=== PATIENT | female | born 1940 | race Caucasian/White ===

== ENCOUNTER 2016-12-18 11:02 | Emergency (ER) | payer BC ==
[~2016-12-18] VITALS: Ht 167.6 cm; Wt 77.9 kg
[~2016-12-18 11:02] MED LIST: ATOR-24 PO; BROM0.07 OPL; METO-217 PO; MULT-506 PO; PRED1SUS3 OPL; SERT-234 PO; SPRIN/30 INH; [UNRECOGNIZED DRUG - OTHER] PO
[2016-12-18 11:07] VITALS: TEMP 36.5; Ht 167.6 cm; Wt 77.9 kg
[2016-12-18 11:18] VITALS: O2SAT 94
[2016-12-18] MEDS ORDERED: BACL10TA PO (11:37)
[2016-12-18 12:35] LABS: BASO % 0.7 %; BASO ABS # 0.05 K/uL (0-0.2); COMPLETE YES; EOS % 2.8 %; HEMATOCRIT 42.6 % (37-47); IG% 0.1 %; LYMPH % 25.8 %; LYMPH ABS # 1.83 K/uL (1.2-3.4); MEAN CELL VOLUME 96.4 fL (80-100); MEAN CORPUSCULAR HEMOGLOBIN 31.7 pg (25-34); MEAN CORPUSCULAR HGB CONC 32.9 g/dl (32-36); MEAN PLATELET VOLUME 10.1 fL (7.4-10.4); MONO % 8.6 %; PLATELET COUNT 276 K/uL (130-400); RED BLOOD COUNT 4.42 M/uL (4.2-5.4)
[2016-12-18 12:43] LABS: BUN/CREATININE RATIO 18.5 (10-20); CREATININE 0.89 mg/dl (0.60-1.20); POTASSIUM 3.9 mmol/L (3.5-5.1)
--- NOTE | 2016-12-18 12:45 | DIAGNOSTIC IMAGING REPORT ---
CT HEAD WITHOUT CONTRAST (CT) CLINICAL HISTORY: Severe headache. Dizziness. COMPARISON STUDY: 08/02/2007 TECHNIQUE: Axial CT of the brain is performed from the vertex to the skull base. IV contrast was not administered for this examination. A dose lowering technique was utilized adhering to the principles of ALARA. CT DOSE: 638.56 mGycm FINDINGS: No intra or extra-axial mass lesions are visualized. There is no CT evidence of acute cortical infarction. There is no evidence of midline shift. There is no acute hemorrhage. No calvarial fractures are visualized. There are minimal white matter hypodensities likely on a small vessel basis. There is no evidence of pathologic ventricular dilatation. There is no evidence of acute sinusitis IMPRESSION: No acute intracranial findings Electronically signed by: Jc Rodriguez M.D. 12/18/2016 12:44 PM Dictated Date/Time: 12/18/2016 12:43 PM
[2016-12-18 13:05] VITALS: BP 160/82; PULSE 59; O2SAT 95
--- NOTE | 2016-12-18 16:53 | EMERGENCY ROOM VISIT NOTE ---
History Report prepared by Gretel: Tommie Valdez Under the Supervision of: Dr. Herbert Bryant D.O. First contact with patient: 11:54 Chief Complaint: HYPERTENSION Stated Complaint: LIGHTHEADED, ELEVATED BP-WAS AT DENTIST OFFICE History of Present Illness The patient is a 76 year old female who presents to the Emergency Room with complaints of resolved headache beginning shortly prior to arrival. She states that she was at the dentist having a crown placed just prior to arrival. She states that she developed a headache due to having her mouth open for so long. The patient states that she normally has headaches every day and that her current headache feels identical to her previous headaches. She localizes the pain to behind her right eye. She also complains of a feeling of "fuzziness". The patient was given Aleve which resolved her symptoms. She notes that she was found to be hypertensive at the dentist's office. Pt denies change in vision, fevers, chest pain, shortness of breath, nausea, vomiting, diarrhea, pain with urination, and melena. Source of History: patient Onset: Shortly prior to arrival Position: head Timing: resolved Modifying Factors (Relieving): other (Aleve) Associated Symptoms: No fevers, No chest pain, No SOB, No nausea, No vomiting, No melena, No diarrhea Note: The patient also complains of a feeling of "fuzziness". Pt denies change in vision, or pain with urination Review of Systems See HPI for pertinent positives & negatives. A total of 10 systems reviewed and were otherwise negative. Past Medical & Surgical Medical Problems: (1) Atrial fibrillation (2) Hematoma of right lower extremity (3) No Known Active Medical Problems Surgical Problems: (1) History of laminectomy Family History Patient reports no known family medical history. Social History Smoking Status: Never Smoker Alcohol Use: occasionally Current/Historical Medications Scheduled Atorvastatin (Lipitor), 40 MG PO QAM Baclofen (Lioresal), 10 MG PO HS Bromfenac Sodium (Ophth) (Prolensa), 1 DROP OPL DAILY Metoprolol Succinate (Toprol Xl), 50 MG PO QAM Multivitamin (Multivitamin), 1 TAB PO QAM Prednisolone Acetate (Ophth) (Pred Forte 1% Oph), 1 DROPS OPL BID Sertraline (Zoloft), 100 MG PO QAM Tiotropium Callahan (Spiriva Handihaler), 1 CAP INH QAM [Vitamin B Comlex], 1 TAB PO QAM Allergies Coded Allergies: Amoxicillin (Verified Adverse Reaction, Unknown, DIARRHEA, 12/18/16) Clavulanic Acid (Verified Adverse Reaction, Unknown, DIARRHEA, 12/18/16) Physical Exam Vital Signs Date Time Temp Pulse Resp B/P (MAP) Pulse Ox O2 Delivery O2 Flow Rate FiO2 12/18/16 13:05 59 16 160/82 95 12/18/16 12:00 66 16 146/87 94 Room Air 12/18/16 11:18 94 Room Air 12/18/16 11:18 60 18 161/89 94 Room Air 12/18/16 11:07 36.5 104 18 161/73 95 Room Air Physical Exam GENERAL: Sitting up in bed, alert, well appearing, well nourished, no distress, non-toxic EYE EXAM: normal conjunctiva. OROPHARYNX: no exudate, no erythema, lips, buccal mucosa, and tongue normal and mucous membranes are moist NECK: supple, no nuchal rigidity, no adenopathy, non-tender LUNGS: Clear to auscultation. Normal chest wall mechanics HEART: no murmurs, S1 normal and S2 normal ABDOMEN: abdomen soft, non-tender, normo-active bowel sounds, no masses, no rebound or guarding. BACK: Back is symmetrical on inspection and there is no deformity, no midline tenderness, no CVA tenderness. SKIN: no rashes and no bruising UPPER EXTREMITIES: upper extremities are grossly normal. LOWER EXTREMITIES: No pitting edema. NEURO EXAM: Normal sensorium, cranial nerves II-XII intact, normal speech, no weakness of arms, n weakness of legs. No drift. Finger to nose intact. Gross sensation intact. Medical Decision & Procedures ER Provider Diagnostic Interpretation: CT:Per my review, radiologist interpretation. CT HEAD WITHOUT CONTRAST (CT) FINDINGS: No intra or extra-axial mass lesions are visualized. There is no CT evidence of acute cortical infarction. There is no evidence of midline shift. There is no acute hemorrhage. No calvarial fractures are visualized. There are minimal white matter hypodensities likely on a small vessel basis. There is no evidence of pathologic ventricular dilatation. There is no evidence of acute sinusitis IMPRESSION: No acute intracranial findings Electronically signed by: Jc Rodriguez M.D. 12/18/2016 12:44 PM Laboratory Results 12/18/16 11:20 Red Blood Count 4.42, Mean Corpuscular Volume 96.4, Mean Corpuscular Hemoglobin 31.7, Mean Corpuscular Hemoglobin Concent 32.9, Mean Platelet Volume 10.1, Neutrophils (%) (Auto) 62.0, Lymphocytes (%) (Auto) 25.8, Monocytes (%) (Auto) 8.6, Eosinophils (%) (Auto) 2.8, Basophils (%) (Auto) 0.7, Neutrophils # (Auto) 4.40, Lymphocytes # (Auto) 1.83, Monocytes # (Auto) 0.61, Eosinophils # (Auto) 0.20, Basophils # (Auto) 0.05 12/18/16 11:20 Test 12/18/16 11:20 White Blood Count 7.10 K/uL (4.8-10.8) Red Blood Count 4.42 M/uL (4.2-5.4) Hemoglobin 14.0 g/dL (12.0-16.0) Hematocrit 42.6 % (37-47) Mean Corpuscular Volume 96.4 fL (80-100) Mean Corpuscular Hemoglobin 31.7 pg (25-34) Mean Corpuscular Hemoglobin Concent 32.9 g/dl (32-36) Platelet Count 276 K/uL (130-400) Mean Platelet Volume 10.1 fL (7.4-10.4) Neutrophils (%) (Auto) 62.0 % Lymphocytes (%) (Auto) 25.8 % Monocytes (%) (Auto) 8.6 % Eosinophils (%) (Auto) 2.8 % Basophils (%) (Auto) 0.7 % Neutrophils # (Auto) 4.40 K/uL (1.4-6.5) Lymphocytes # (Auto) 1.83 K/uL (1.2-3.4) Monocytes # (Auto) 0.61 K/uL (0.11-0.59) Eosinophils # (Auto) 0.20 K/uL (0-0.5) Basophils # (Auto) 0.05 K/uL (0-0.2) RDW Standard Deviation 48.1 fL (36.4-46.3) RDW Coefficient of Variation 13.6 % (11.5-14.5) Immature Granulocyte % (Auto) 0.1 % Immature Granulocyte # (Auto) 0.01 K/uL (0.00-0.02) Anion Gap 7.0 mmol/L (3-11) Est Creatinine Clear Calc Drug Dose 58.4 ml/min Estimated GFR () 74.0 Estimated GFR (Non- 63.8 BUN/Creatinine Ratio 18.5 (10-20) Calcium Level 9.0 mg/dl (8.5-10.1) Laboratory results per my review. ECG Indication: other (headache) Rate (beats per minute): 69 Rhythm: sinus rhythm Findings: PAC, Q waves (Septal), other (Normal axis. Normal intervals. ) Comparison ECG Date: June 30, 2009 Change: no significant change ED Course ED COURSE: Vital signs were reviewed and showed hypertension The patients medical record was reviewed The above diagnostic studies were performed and reviewed. ED treatments and interventions as stated above. 1206: The patient was evaluated in room C9. A complete history and physical examination was performed. 1300: Upon reevaluation, the patient is resting comfortably. I discussed my findings with the patient and she understands and agrees with the treatment plan. Based on the patients age, coexisting illnesses, exam and lab findings the decision to treat as an outpatient was made. The patient remained stable while under my care. The patient appeared well at the time of discharge. Medical Decision Differential Diagnosis includes but is not limited to ischemic Stroke, hemorrhagic stroke, bells palsy, mass, neoplasm, migraine headache, seizure, subarachnoid hemorrhage, TIA, and transient global amnesia. Patient is a 76-year-old female who presents to ER for headache. She notes she gets headaches every day. This consistent with her typical headache in her frontal region. Unchanged in any way. She was having a dental procedure performed and had her mouth open for over an hour. She felt a little off. Blood pressure was checked. She was hypertensive. She was sent in for further workup at the ER. Patient is completely neurologically intact. CT head was negative. Systolic BPs were 140. EKG was unremarkable. BMP all with CBC was negative. Patient denied any chest pain or shortness breath. No weakness or numbness in the extremities. No signs of CVA. Patient was updated at bedside and discharged as I favor her symptoms are likely secondary to the jaw pain/ dental pain from the procedure causing the hypertension and lightheadedness. Discussed with Pt concerning signs and symptoms to watch out for. Pt was instructed to follow up with their PCP and discussed with the patient their option to return to the ED at anytime for persistent or worsening symptoms. The appropriate anticipatory guidance and out-patient management, including indications for return to the emergency department, were explained at length to the patient and understood. Medication Reconcilliation Current Medication List: was personally reviewed by me Blood Pressure Screening Patient's blood pressure: Elevated blood pressure Blood pressure disposition: Elevated BP felt to be situational Impression Primary Impression: Cephalgia Additional Impression: HTN (hypertension) Scribe Attestation The scribe's documentation has been prepared under my direction and personally reviewed by me in its entirety. I confirm that the note above accurately reflects all work, treatment, procedures, and medical decision making performed by me. Departure Information Dispostion Home / Self-Care Referrals Debbie Castillo DO (PCP) Forms HOME CARE DOCUMENTATION FORM, IMPORTANT VISIT INFORMATION, WORK / SCHOOL INSTRUCTIONS Patient Instructions ED Cephalgia Unspecified, ED Hypertension Poss, My [facility] Additional Instructions Please follow up with your primary care doctor with in the next 24 hours. Any worsening of your symptoms, please return to the ED immediately. This includes any fevers greater than 100.4, worsening pain, chest pain, shortness breath, persistent nausea, vomiting, unable to eat or drink, weakness or numbness in arms or legs, or any other concerning signs or symptoms from your standpoint. Problem Qualifiers Primary Impression: Cephalgia Headache type: unspecified Headache chronicity pattern: unspecified pattern Intractability: not intractable Qualified Codes: R51 - Headache Additional Impression: HTN (hypertension) Hypertension type: unspecified Qualified Codes: I10 - Essential (primary) hypertension
== END 2016-12-18 13:21 | disposition home or self-care (01) ==
LOC: C.EDB 11:04 → C.EDC 13:21
DX: R51 Headache (principal); I10 Essential (primary) hypertension; I48.91 Unspecified atrial fibrillation; Z87.828 Personal history of other (healed) physical injury and trauma; Z98.890 Other specified postprocedural states; Z79.899 Other long term (current) drug therapy; Z88.1 Allergy status to other antibiotic agents; Z88.8 Allergy status to other drugs, medicaments and biological substances

== ENCOUNTER → 2017-01-02 | Outpatient (CLI) | payer BC ==
[~2017-01-02] MED LIST changes: +BACL10TA PO
--- NOTE | 2017-02-01 07:53 | CODING QUERY MEDICAL NECESSITY ---
TREATMENT RENDERED WITHOUT A DIAGNOSIS To promote full compliance with coding requirements relating to patient care, physician participation is requested in all cases of child support specialist uncertainty. Please assist us with providing a diagnosis/symptom for the test(s) below: A diagnosis/symptom was not documented on your Order. A valid diagnosis/symptom is required to bill all insurances. Please remember that we are unable to code a diagnosis of rule out, probable, possible, questionable, or suspected. Tests that require a diagnosis: * AERO/ANAE CULTURE & GRAM STAIN DIAGNOSIS: Provider Signature: Date: Thank you Indy [place] [employer] Once completed, please kindly fax back to [phone] For questions please call [phone]
== END | disposition home or self-care (01) ==
LOC: C.LABSPEC 17:54
PROVIDERS: ATTEND Orthopaedic Surgery
DX: M65.132 Other infective (teno)synovitis, left wrist (principal)

== ENCOUNTER 2019-08-14 10:02 | Observation (INO) ==
[2019-08-14] MEDS ORDERED: NITROGLYCERIN SL 0.4 MG/TAB TAB SL PRN ×2 (10:31→16:32)
--- NOTE | 2019-08-14 10:31 | Emergency Department Note ---
Impression & Plan Chest pain ED Provider Note NAME: ALY FOX AGE: 79 SEX: F : 1940 ARRIVES VIA: Ambulance INFORMANT: Patient, ED PROVIDER(S): Joey Lyn MD Chief Complaint: Chest pain HPI: Patient does complain of waking up with chest pain within the left breast moving to the left shoulder axilla area. The patient thought that maybe this is attributable to a massage. The patient states the pain did last for several hours and subsequently called for evaluation. The patient did take 4 baby aspirin on her own prior to arrival. The patient did receive nitro in route which resolved her pain. Patient denies shortness of breath. Patient does not believe the pain to be worsened with position. Patient is not had any diaphoresis patient denies nausea vomiting or syncope. Patient was not doing anything exertional as the patient has not necessarily had exertional chest pains. Patient is not had any cough. ROS: See HPI for pertinent positives and negatives. A total of 10 systems were reviewed and otherwise negative. Past medical history: See below Surgical history: See below Social history: See below Physical Exam: GENERAL: Well appearing, well nourished, NAD, non-toxic. EYE EXAM: Normal conjunctiva. PERRL, no anisocoria and EOM's grossly intact w/o pain. NECK: Supple, no nuchal rigidity, no adenopathy, non-tender. No signs of meningismus. LUNGS: Clear to auscultation. Normal chest wall mechanics. HEART: NSR, no MRG. ABDOMEN: Abdomen soft, non-tender, normo-active bowel sounds, no masses, no rebound or guarding. BACK: No CVA TTP. SKIN: No rashes and no bruising. UPPER EXTREMITIES: Upper extremities are grossly normal. LOWER EXTREMITIES: Grossly normal, no edema. Negative Homans sign bilaterally. NEURO EXAM: A&O x3, cranial nerves II-XII grossly intact, normal speech, moves all 4 extremities on command w/o issue. Differential diagnoses: Cardiac ischemia, aortic dissection, pulmonary embolism, pneumothorax, pneumonia, pericarditis, myocarditis, esophageal rupture, GERD, cholecystitis, pancreatitis, musculoskeletal, as well as other pathologies. Course: Patient was seen and evaluated the bedside. Full history physical exam was performed. EKG: Indication: Chest pain Sinus bradycardia, rate of 57, prolonged QT, normal axis, no obvious ST changes, Q wave in V2. Imaging Studies: Radiology results as stated below per my review in the radiologist's interpretation: XR chest 1V portable CLINICAL HISTORY: Chest Pain pain COMPARISON STUDY: 03/05/2019 FINDINGS: The bones soft tissues and hemidiaphragms are normal. The cardiomediastinal silhouette is normal. The lungs are clear. The pulmonary vasculature is normal. IMPRESSION: Negative chest. ACT 112: Negative or not required by law. The above report was generated using voice recognition software. It may contain grammatical, syntax or spelling errors. Electronically signed by: Romeo Ag M.D. 08/14/2019 10:52 AM Dictated: 08/14/19 105 Transcribed: 08/14/19 105 Cardiac monitoring: An order was placed for continuous cardiac monitoring. The monitor shows a rate of 53 with sinus bradycardia rhythm. MDM: Patient did present with concern for left-sided radiating chest pain. Did impr ove with nitro. Patient was ordered sublingual nitro as needed. Troponin undetectable EKG unremarkable. She has normal white count H&H. Patient has very mild hypercalcemia LFTs kidney function unremarkable. Lipase not elevated. Not currently in A. fib and the patient is currently anticoagulated. Patient is a heart score greater than 4 given the patient's story believe that it would be reasonable for observation. I did speak the on-call hospitalist Dr. Tidwell who agreed to further evaluate treat the patient. Past Med/Surg History Medical History Atrial fibrillation (Inactive) Cervicalgia (Inactive) HTN (hypertension) (Inactive) Surgical History History of back surgery Social History (Updated 08/14/19 @ 14:44 by Indy Tidwell DO) Preferred Language: Citizen Of [place] Communication Ability: Effective Recharger Required: No Beliefs That Will Affect Care: None Current Living Situation: Personal Care Facility Current Living Situation Comment: [place] Other Information That Helps Us Care for You: No Feels Safe at Home: Yes Safety Concerns: Feels Safe At This Time Smoking Status: Former smoker Age Quit Using Tobacco: 59 ; Hx Alcohol Use: Yes Alcohol type: wine Alcohol Intake Frequency Comment: wine, 2 glasses most days a week Hx Substance Use: No Allergies Allergies Allergy/AdvReac Type Severity Reaction Status Date / Time amoxicillin AdvReac Unknown DIARRHEA Verified 08/14/19 11:15 clavulanic acid AdvReac Unknown DIARRHEA Verified 08/14/19 11:15 Home Meds Home Medications Medication Instructions Recorded Confirmed atorvastatin 40 mg tablet 40 mg PO HS #90 tab 09/15/18 08/14/19 escitalopram oxalate 20 mg tablet 20 mg PO QAM tab 09/15/18 08/14/19 apixaban 5 mg tablet 5 mg PO BID 04/13/19 08/14/19 cholecalciferol (vitamin D3) 50 mcg PO QDL 08/14/19 08/14/19 [Vitamin D3] metoprolol succinate 25 mg PO HS 08/14/19 08/14/19 metoprolol succinate 50 mg PO QAM 08/14/19 08/14/19 topiramate 100 mg PO QAM 08/14/19 08/14/19 vitamin B complex 1 tab PO QDL 08/14/19 08/14/19 Results & Data (ED) Vital Signs Vital Signs - 24 hr 08/14/19 10:12 08/14/19 11:30 08/14/19 11:33 Temperature 37.0 C Temperature Source Oral Pulse Rate 54 L Pulse Rate [Apical] 57 L Respiratory Rate 16 16 Respiratory Effort / Characteristics Non-Labored Blood Pressure 128/73 Blood Pressure [Right Arm] 134/74 Blood Pressure Mean 91 Blood Pressure Mean [Right Arm] 94 Pulse Oximetry 95 95 Oxygen Delivery Method Room Air Room Air Sepsis Recent Fever Within 48 Hours No Sepsis New/Unexplained Change in Mental Status No Sepsis Action Taken by Nursing No Action Required 08/14/19 12:46 Temperature Temperature Source Pulse Rate Pulse Rate [Apical] 53 L Respiratory Rate 16 Respiratory Effort / Characteristics Blood Pressure Blood Pressure [Right Arm] Blood Pressure Mean Blood Pressure Mean [Right Arm] Pulse Oximetry 96 Oxygen Delivery Method Room Air Sepsis Recent Fever Within 48 Hours Sepsis New/Unexplained Change in Mental Status Sepsis Action Taken by [facility] Medications Current Medication List: was personally reviewed by me Laboratory Data Attestation: I reviewed the patient's lab results. Result diagrams: 08/14/19 11:00 08/14/19 12:02 Lab Results 08/14/19 08/14/19 08/14/19 Range/Units 11:00 11:00 11:00 WBC 6.11 (4.8-10.8) K/uL RBC 4.01 L (4.2-5.4) M/uL Hgb 12.4 (12.0-16.0) g/dL Hct 39.2 (37-47) % MCV 97.8 (80-100) fL MCH 30.9 (25-34) pg MCHC 31.6 L (32-36) g/dL RDW Std Deviation 48.0 H (36.4-46.3) fL RDW Coeff of Royer 13.4 (11.5-14.5) % Plt Count 289 (130-400) K/uL MPV 10.1 (7.4-10.4) fL Immature Gran % (Auto) 0.2 % Neut % (Auto) 63.0 % Lymph % (Auto) 23.4 % [place] % (Auto) 9.7 % Eos % (Auto) 2.9 % Baso % (Auto) 0.8 % Neut # (Auto) 3.85 (1.4-6.5) K/uL Lymph # (Auto) 1.43 (1.2-3.4) K/uL [place] # (Auto) 0.59 (0.11-0.59) K/uL Eos # (Auto) 0.18 (0-0.5) K/uL Baso # (Auto) 0.05 (0-0.2) K/uL Immature Gran # (Auto) 0.01 (0.00-0.02) K/uL PT Cancelled INR Cancelled APTT Cancelled PTT Ratio Cancelled Sodium Cancelled Potassium Cancelled Chloride Cancelled Carbon Dioxide Cancelled Anion Gap Cancelled BUN Cancelled Creatinine Cancelled Est Cr Clr Drug Dosing Cancelled Est GFR ( Amer) Cancelled Est GFR (Non-Af Amer) Cancelled BUN/Creatinine Ratio Cancelled Glucose Cancelled Calcium Cancelled Total Bilirubin Cancelled AST Cancelled ALT Cancelled Alkaline Phosphatase Cancelled Troponin I Cancelled Total Protein Cancelled Albumin Cancelled Globulin Cancelled Albumin/Globulin Ratio Cancelled Lipase Cancelled 08/14/19 08/14/19 Range/Units 12:02 12:02 WBC (4.8-10.8) K/uL RBC (4.2-5.4) M/uL Hgb (12.0-16.0) g/dL Hct (37-47) % MCV (80-100) fL MCH (25-34) pg MCHC (32-36) g/dL RDW Std Deviation (36.4-46.3) fL RDW Coeff of Royer (11.5-14.5) % Plt Count (130-400) K/uL MPV (7.4-10.4) fL Immature Gran % (Auto) % Neut % (Auto) % Lymph % (Auto) % [place] % (Auto) % Eos % (Auto) % Baso % (Auto) % Neut # (Auto) (1.4-6.5) K/uL Lymph # (Auto) (1.2-3.4) K/uL [place] # (Auto) (0.11-0.59) K/uL Eos # (Auto) (0-0.5) K/uL Baso # (Auto) (0-0.2) K/uL Immature Gran # (Auto) (0.00-0.02) K/uL PT 12.2 H INR 1.2 H APTT 34.1 H PTT Ratio 1.2 Sodium 140 Potassium 3.9 Chloride 109 H Carbon Dioxide 26 Anion Gap 6.0 BUN 14 Creatinine 0.83 Est Cr Clr Drug Dosing 60.9 Est GFR ( Amer) 78.8 Est GFR (Non-Af Amer) 68.0 BUN/Creatinine Ratio 16.9 Glucose 101 H Calcium 8.3 L Total Bilirubin 0.5 AST 26 ALT 26 Alkaline Phosphatase 83 Troponin I < 0.015 Total Protein 7.1 Albumin 3.5 Globulin 3.6 Albumin/Globulin Ratio 1.0 Lipase 260 Administered Medications Acetaminophen (Tylenol) 650 mg PO Q4H PRN PRN Reason: Pain or Fever Stop: 09/13/19 16:31 Last Admin: 08/14/19 19:52 Dose: 650 mg Documented by: [id number] Apixaban (Eliquis) 5 mg PO BID [facility] Stop: 09/13/19 20:59 Last Admin: 08/14/19 21:29 Dose: 5 mg Documented by: [id number] Atorvastatin Calcium (Lipitor) 40 mg PO [facility] Stop: 09/13/19 20:59 Last Admin: 08/14/19 21:29 Dose: 40 mg Documented by: [id number] Metoprolol Succinate (Toprol Xl) 25 mg PO [facility] Stop: 09/13/19 20:59 Last Admin: 08/14/19 21:29 Dose: 25 mg Documented by: [id number] Discontinued Medications Acetaminophen (Tylenol) Confirm Administered Dose 325 mg .ROUTE .STK-MED ONE Stop: 08/14/19 15:20 Last Admin: 08/14/19 15:20 Dose: 325 mg Documented by: [id number] Trazodone HCl (Desyrel) 50 mg PO NOW ONE Stop: 08/14/19 20:14 Last Admin: 08/14/19 21:29 Dose: 50 mg Documented by: [id number] Discharge Plan Visit Data *Final* Discharge Date/Time: 08/14/19 16:26 Chief Complaint: Chest Pain ED Provider: Joey Lyn ED Midlevel Provider: Juan Carlos Roland Discharge Problem: Chest pain Patient Disposition: Admitted As Inpatient Discharge Instructions Interventions: ED Discharge Assessment Last Done: 08/14/19 16:26 Discharge Problem: Chest pain Qualifiers: Chest pain type: unspecified Qualified Code(s): R07.9 - Chest pain, unspecified
--- NOTE | 2019-08-14 10:53 | XRay Report ---
XR chest 1V portable CLINICAL HISTORY: Chest Pain pain COMPARISON STUDY: 03/05/2019 FINDINGS: The bones soft tissues and hemidiaphragms are normal. The cardiomediastinal silhouette is n ormal. The lungs are clear. The pulmonary vasculature is normal. IMPRESSION: Negative chest. ACT 112: Negative or not required by law. The above report was generated using voice recognition software. It may contain grammatical, syntax or spelling errors. Electronically signed by: Romeo Ag M.D. 08/14/2019 10:52 AM
[2019-08-14 11:14] LABS: Basophils # (auto) 0.05 K/uL (0-0.2); Basophils % (auto) 0.8 %; Eosinophils # (auto) 0.18 K/uL (0-0.5); Eosinophils % (auto) 2.9 %; Hematocrit (blood only) 39.2 % (37-47); Hemoglobin 12.4 g/dL (12.0-16.0); Immature Granulocytes # (auto) 0.01 K/uL (0.00-0.02); Immature Granulocytes % (auto) 0.2 %; Lymphocytes # (auto) 1.43 K/uL (1.2-3.4); Lymphocytes % (auto) 23.4 %; Mean Corpuscular Hemoglobin 30.9 pg (25-34); Mean Corpuscular Hgb Conc 31.6 g/dL (32-36); Mean Corpuscular Volume 97.8 fL (80-100); Mean Platelet Volume 10.1 fL (7.4-10.4); Monocytes # (auto) 0.59 K/uL (0.11-0.59); Monocytes % (auto) 9.7 %; Neutrophils # (auto) 3.85 K/uL (1.4-6.5); Platelet Count 289 K/uL (130-400); RDW Coefficient of Variation 13.4 % (11.5-14.5); Red Blood Count 4.01 M/uL (4.2-5.4); White Blood Count 6.11 K/uL (4.8-10.8)
[2019-08-14 12:39] LABS: INR 1.2 (0.9-1.1); Partial Thromboplastin Ratio 1.2; Partial Thromboplastin Time 34.1 Seconds (21.0-31.0); Prothrombin Time 12.2 Seconds (9.0-12.0)
[2019-08-14 12:45] LABS: Alanine Aminotransferase 26 U/L (12-78); Albumin Level 3.5 gm/dl (3.4-5.0); Aspartate Aminotransferase 26 U/L (15-37); BUN Creatinine Ratio 16.9 (10-20); Blood Urea Nitrogen 14 mg/dl (7-18); Calcium 8.3 mg/dl (8.5-10.1); Carbon Dioxide 26 mmol/L (21-32); Chloride 109 mmol/L (98-107); Creatinine Clr Calc Pharmacy 60.9 ml/min; Est GFR (African American) 78.8; Glucose 101 mg/dl (70-99); Lipase 260 U/L (73-393); Potassium 3.9 mmol/L (3.5-5.1); Sodium 140 mmol/L (136-145)
[2019-08-14 12:50] LABS: Alkaline Phosphatase 83 U/L (45-117); Bilirubin,Total 0.5 mg/dl (0.2-1); Globulin 3.6 gm/dl (2.5-4.0); Total Protein 7.1 gm/dl (6.4-8.2); Troponin I < 0.015 ng/ml (0-0.045)
--- NOTE | 2019-08-14 14:48 | History & Physical Report ---
Date of Service August 14, 2019 Assessment & Plan (1) Chest pain: ACS vs MSK Reproducible on palpation Pt does have risk factors for ACS, although minimal Trop neg x1, serials pending EKG, CXR WNL CBC, PRP WNL Stress ECHO in AM if trop WNL, although could possibly have as outpt if unable to be done tomorrow (2) Headache: Topimax as at home (3) COPD (chronic obstructive pulmonary disease): Question of dx Hx of pulm visit with inhaler rx, but not recent IS, advised home use and home yoga/breathing for increased lung capacity Advised f/u with PCP vs pulm for PFT testing (states had this prior) (4) Depression: continue home meds (5) Hyperlipidemia: continue home meds (6) Atrial fibrillation: continue home meds, eliquis (7) DVT prophylaxis: Eliquis History of Present Illness Primary Care Provider: Thor Irving MD 79 y/o F c/o chest pain. Pt states she was sleeping around 5am when she woke up with sudden onset of L sided chest pain. It was sharp and "felt like it was heart pain" under her L breast. It did not radiate anywhere. She states it faded away and she fell back asleep. She woke up arond 6a and states she was h aving "twinges" of pain from 6-9a. She states that she had a deep tissue massage yesterday. She has massage regularly, every 1-2 weeks. There was no work done on her chest, but she felt that it might be related to this as she felt an odd pain in her chest when she twisted around as part of an exercise she was being shown to help with some R groin pain she has been having. She states that she now t hinks that this pain was related to this twisting movement, but she called the oncall at [facility] and they recommended she be seen in the ED. Pt has no pain at this time unless she pushes on the area under her breast. Pt denies fever, SOB, abd pain, n/v/c/d, LE pain or swelling. She states that yesterday was a normal day for her outside of the feeling in her chest after the twisting movement. She was not limited in any activities. Pt states that she was told several years ago that she has COPD. She states she was given an inhaler that she used for about a year, but "it didn't seem to change anything", so she stopped. She is wondering if she has COPD. Allergies Allergy/AdvReac Type Severity Reaction Status Date / Time amoxicillin AdvReac Unknown DIARRHEA Verified 08/14/19 11:15 clavulanic acid AdvReac Unknown DIARRHEA Verified 08/14/19 11:15 Home Medications Home Medications Medication Instructions Recorded Confirmed Type atorvastatin 40 mg tablet 40 mg PO HS #90 tab 09/15/18 08/14/19 History escitalopram oxalate 20 mg tablet 20 mg PO QAM tab 09/15/18 08/14/19 History apixaban 5 mg tablet 5 mg PO BID 04/13/19 08/14/19 History cholecalciferol (vitamin D3) 50 mcg PO QDL 08/14/19 08/14/19 History [Vitamin D3] metoprolol succinate 25 mg PO HS 08/14/19 08/14/19 History metoprolol succinate 50 mg PO QAM 08/14/19 08/14/19 History topiramate 100 mg PO QAM 08/14/19 08/14/19 History vitamin B complex 1 tab PO QDL 08/14/19 08/14/19 History Past Med/Surg History Medical History Atrial fibrillation (Inactive) Cervicalgia (Inactive) HTN (hypertension) (Inactive) Surgical History History of back surgery Family History (Updated 08/14/19 @ 14:44 by Indy Tidwell DO) Family/Other No pertinent family history Denies family history of Myocardial infarction Stroke Social History (Updated 08/14/19 @ 14:44 by Indy Tidwell DO) Feels Safe at Home: Yes Smoking Status: Former smoker Age Quit Using Tobacco: 59 ; Hx Alcohol Use: Yes Alcohol Intake Frequency Comment: wine, 2 glasses most days a week Hx Substance Use: No Review of Systems Review of Systems: Pertinent positives and negatives reviewed in HPI--all others negative Physical Exam Constitutional: WD/WN, vitals as above Eyes: normal visual richardson by confrontation and + anicteric sclerae Neck: normal visual inspection and trachea midline Respiratory: normal respiratory effort, lungs clear to auscultation Cardiovascular: Rate/Rhythm: regular rate and regular rhythm Chest (Breasts): Additional Comments: TTP under L breast Gastrointestinal (Abdomen): Inspection/Auscultation: abdomen not distended Percussion/Palpation: abdomen soft; abdomen nontender Musculoskeletal: Head/Neck/Chest: normocephalic and head atraumatic negative for edema, peripheral pulses intact Skin: no rashes, warm and dry Neurologic: awake; not confused Speech / Cognition: normal speech Psychiatric: A+Ox3, euthymic affect Results & Data Results & Data ([facility]) Vital Signs (Past 12 Hours) Vital Signs Temp Pulse Pulse Resp BP BP Pulse Ox 08/14/19 12:46 53 L 16 96 08/14/19 11:33 95 08/14/19 11:30 57 L 16 134/74 08/14/19 10:12 37.0 C 54 L 16 128/73 95 Diagnostic Findings CXR: neg for acute ECG Rhythm: sinus bradycardia Code Status & VTE Plan Code Status Full code, although pt states no prolonged mechanical life support, feeding tubes, etc VTE Prophylaxis Plan VTE Prophylaxis will be ordered: Yes PG Care Time/CCT Total # of Minutes Spent Total Time Spent with Patient: Total time spent is greater than 50% in coordination of care (as documented) at patient's floor/unit and/or counseling patient: Coding Level of Care Code 90000 OBS Care - Level 3 Diagnoses Chest pain R07.9 Headache R51 COPD (chronic obstructive pulmonary disease) J44.9 Depression F32.9 Hyperlipidemia E78.5 Atrial fibrillation I48.91 DVT prophylaxis Z29.9
[2019-08-14] MEDS ORDERED: ACETAMINOPHEN 325 MG TAB ONE (15:19)
--- NOTE | 2019-08-14 15:51 | Electrocardiogram Report ---
Test Reason : Blood Pressure : / mmHG Vent. Rate : 057 BPM Atrial Rate : 057 BPM P-R Int : 142 ms QRS Dur : 074 ms QT Int : 480 ms P-R-T Axes : 014 029 046 degrees QTc Int : 467 ms Sinus bradycardia Septal infarct (cited on or before 18-DEC-2016) Abnormal ECG When compared with ECG of 18-DEC-2016 11:18, Premature supraventricular complexes are no longer Present Confirmed by Mitchell Kumar ([id number]) on 08/14/2019 3:51:33 PM Referred By: ED Confirmed By:Mitchell Kumar
[2019-08-14] MEDS ORDERED: ONDANSETRON INJ 2 MG/ML 2 ML VIAL IV PRN (16:32)
[2019-08-14] MEDS ORDERED: MAGNESIUM HYDROXIDE SUSP 30 ML UDC PO PRN (16:32)
[2019-08-14] MEDS: ACETAMINOPHEN 325 MG TAB PO PRN (19:52)
[2019-08-14] MEDS ORDERED: TRAZODONE HCL 50 MG TAB PO ONE (20:13)
[2019-08-14] MEDS ORDERED: ATORVASTATIN 40 MG TAB PO SCH (21:00)
[2019-08-14] MEDS ORDERED: METOPROLOL SUCC 25MG EXT REL TAB PO SCH (21:00)
[2019-08-14] MEDS: APIXABAN 5 MG TABLET PO SCH (21:29)
[2019-08-15] MEDS: APIXABAN 5 MG TABLET PO SCH (07:40)
[2019-08-15] MEDS: ACETAMINOPHEN 325 MG TAB PO PRN (07:47)
[2019-08-15] MEDS ORDERED: TOPIRAMATE 100 MG TAB PO SCH (09:00)
[2019-08-15] MEDS ORDERED: ESCITALOPRAM OXALATE 20 MG TAB PO SCH (09:00)
[2019-08-15] MEDS ORDERED: METOPROLOL SUCC 50MG EXT REL TAB PO SCH (09:00)
[2019-08-15] MEDS ORDERED: CHOLECALCIFEROL 1,000 UNITS 25 MCG TAB PO SCH (11:30)
[2019-08-15] MEDS ORDERED: VITAMIN B COMPLEX TAB PO SCH (11:30)
--- NOTE | 2019-08-15 12:40 | Discharge Summary ---
Date of Service August 15, 2019 Admission HPI Per Admitting Provider 79 y/o F c/o chest pain. Pt states she was sleeping around 5am when she woke up with sudden onset of L sided chest pain. It was sharp and "felt like it was heart pain" under her L breast. It did not radiate anywhere. She states it faded away and she fell back asleep. She woke up arond 6a and states she was having "twinges" of pain from 6-9a. She states that she had a deep tissue massage yesterday. She has massage regularly, every 1-2 weeks. There was no work done on her chest, but she felt that it might be related to this as she felt an odd pain in her chest when she twisted around as part of an exercise she was being shown to help with some R groin pain she has been having. She states that she now thinks that this pain was related to this twisting movement, but she called the oncall at [facility] and they recommended she be seen in the ED. Pt has no pain at this time unless she pushes on the area under her breast. Pt denies fever, SOB, abd pain, n/v/c/d, LE pain or swelling. She states that yesterday was a normal day for her outside of the feeling in her chest after the twisting movement. She was not limited in any activities. Pt states that she was told several years ago that she has COPD. She states she was given an inhaler that she used for about a year, but "it didn't seem to change anything", so she stopped. She is wondering if she has COPD. Principal Diagnosis Atypical chest pain Discharge Exam Constitutional WD/WN, vitals as above Eyes PERRL, conjunctivae normal, anicteric sclerae ENMT external ear and nose normal, oropharynx normal Neck trachea midline, no thyromegaly Respiratory normal respiratory effort, lungs clear to auscultation Cardiovascular RRR, no murmur, no edema Gastrointestinal (Abdomen) normal bowel sounds, soft, nontender, no hepatosplenomegaly Musculoskeletal no cyanosis or clubbing, extremities motor strength 5/5 Skin no rashes, warm and dry Neurologic patellar DTR's 2+ bilat, sensation intact and PERRL, EOMI, accommodation nl, no face palsy, no dysarthria Psychiatric A+Ox3, euthymic affect Lymphatic no cervical or axillary lymphadenopathy Discharge Data Allergies Allergy/AdvReac Type Severity Reaction Status Date / Time amoxicillin AdvReac Unknown DIARRHEA Verified 08/14/19 11:15 clavulanic acid AdvReac Unknown DIARRHEA Verified 08/14/19 11:15 Consultations 08/14/19 13:47 ED Decision to Admit Stat Hospital Course (1) Chest pain: most likely musculoskeletal Reproducible on palpation Pt does have risk factors for ACS, although minimal troponin negative x 3 sets, no ischemic changes on EKG, ACS ruled out recommend patient get stress echocardiogram as outpatient if she desires CXR normal as well no chest pain at the time of discharge (2) Headache: Topimax as at home (3) COPD (chronic obstructive pulmonary disease): Question of dx Hx of pulm visit with inhaler rx, but not recent IS, advised home use and home yoga/breathing for increased lung capacity Advised f/u with PCP vs pulm for PFT testing (states had this prior) (4) Depression: continue home meds (5) Hyperlipidemia: continue home meds (6) Atrial fibrillation: continue home meds, eliquis (7) DVT prophylaxis: Eliquis Total Time Total Time Spent Total Time Spent (In Minutes): 22 minutes Total Time Includes: Examination of the Patient, Discharge Planning and Medication Reconciliation Discharge Plan Discharge Items Patient Disposition: Personal Shelter Reason For Visit: CHEST PAIN Discharge Diagnosis: Chest pain, non-cardiac Goals: follow up for outpatient stress echocardiogram Activity: Resume your previous activity Non-emergency contact: Primary Care Provider Call non-emergency contact if: you have any medication questions and your symptoms worsen Follow-up/Referrals: Thor Irving MD [Primary Care Provider] - Diet: Heart Healthy Addtl Attending Provider Instructions: Medications: no changes Chest pain at rest, atypical presentation EKG without ischemic changes, troponin negative x 3 sets vitals stable, CXR normal no further chest pain while here recommend outpatient stress test, cannot perform a stress test this weekend Pending Studies at Discharge: No Stand-Alone Forms: [employer], Smoking Cessation Skilled Items Patient informed of condition?: Yes DNR: No Discharge Level of Care: Other Communicable Disease: No Discharge Prognosis: Stable Lines: None Urinary Catheter: No Medications and DC Order Prescriptions: Continued escitalopram oxalate 20 mg tablet 20 mg PO QAM RF: 0 atorvastatin 40 mg tablet 40 mg PO HS Qty: 90 RF: 0 Eliquis 5 mg tablet 5 mg PO BID RF: 0 metoprolol succinate 25 mg tablet extended release 24 hr 50 mg PO QAM RF: 0 vitamin B complex Tablet 1 tab PO QDL RF: 0 metoprolol succinate 25 mg tablet extended release 24 hr 25 mg PO HS RF: 0 cholecalciferol (vitamin D3) [Vitamin D3] 50 mcg (2,000 unit) Tablet 50 mcg PO QDL RF: 0 topiramate 100 mg tablet 100 mg PO QAM RF: 0 Discharge Orders: Discharge Order (Routine); Ordered 08/15/19 Ordered By: Wilfredo Velazquez/Other Patient Handouts: What Is Angina?, Symptoms of a Heart Attack Admission Data Admit Date/Time: 08/14/19 14:41 Attending Provider: Wilfredo Eller Admit Provider: Indy Tidwell Primary Care Provider: Thor Irving Other Providers: Indy Tidwell Other Interventions: Discharge Summary Assessment (RN) Last Done: 08/15/19 13:53 DC Date/Time DO NOT enter until pt leaves facility: 08/15/19 14:36 Coding Level of Care Code 18672 OBS Care - Discharge Diagnoses Chest pain R07.9 Headache R51 COPD (chronic obstructive pulmonary disease) J44.9 Depression F32.9 Hyperlipidemia E78.5 Atrial fibrillation I48.91 DVT prophylaxis Z29.9
== END 2019-08-15 14:36 | disposition home or self-care (01) ==
LOC: ED 10:02 → 2S 10:02 → SUATTDRO 14:41 → 2S 16:26